=== PATIENT | female | born 1995 | race Caucasian/White ===

== ENCOUNTER 2017-08-07 09:01 | Day surgery (SDC) | payer MEDICAID, OTHER ==
[~2017-08-07 09:01] MED LIST: Lactated Ringers 1,000 ML IV SCH; Lidocaine 1%/Sod Bicarbonate in NS 8.4% 1 ML Syringe IV PRN; Sodium Chloride 0.9% 10 ML Syringe FLUSH PRN
[2017-08-07] MEDS ORDERED: Dexamethasone 4 MG/ML 5 ML MDV ONE (09:15)
[2017-08-07] MEDS ORDERED: Ondansetron 4 MG/2 ML SDV ONE (09:15)
[2017-08-07] MEDS ORDERED: Propofol 200 MG/20 ML SDV ONE (09:15)
[2017-08-07] MEDS ORDERED: Midazolam 1 MG/ML 2 ML SDV ONE (09:15)
[2017-08-07] MEDS ORDERED: fentaNYL 250 MCG/5 ML SDV ONE (09:16)
--- NOTE | 2017-08-07 09:53 | PCM.PREANE ---
Preanesthetic Assessment - Anesthesia/Transfusion/Family Hx Anesthesia History: Prior Anesthesia Without Reaction Family History of Anesthesia Reaction: No Transfusion History: No Prior Transfusion(s) - Review of Systems General: No Symptoms, Other (morbid obesity) Pulmonary: Shortness of Breath, Other (asthma, uses inhaler 5x/month, sleep apnea, does not wear CPAP) Cardiovascular: No Symptoms Gastrointestinal: No Symptoms Neurological: Other (seizures as a child, last one at 5 years old, no meds since age 8) Other: Reports: None - Physical Assessment NPO Status Date: 08/06/17 NPO Status Time: 23:00 Pulse: 98 O2 Sat by Pulse Oximetry: 98 Respiratory Rate: 20 Blood Pressure: 143/90 Vital Signs: Last Vital Signs Temp 36.7 C 08/07/17 09:05 Pulse 98 08/07/17 09:05 Resp 20 08/07/17 09:05 BP 143/90 H 08/07/17 09:05 Pulse Ox 98 08/07/17 09:05 Height: 1.7 m Weight: 157.397 kg ASA Class: 2 Mental Status: Alert & Oriented x3 Airway Class: Mallampati = 2 Dentition: Reports: Normal Dentition Thyro-Mental Finger Breadths: 3 Mouth Opening Finger Breadths: 3 ROM/Head Extension: Full Lungs: Clear to Auscultation, Normal Respiratory Effort Cardiovascular: Regular Rate, Regular Rhythm, No Murmurs - Lab Values: Laboratory Last Values WBC 5.74 K/mm3 (3.98-10.04) 08/07/17 09:26 RBC 3.75 M/mm3 (3.98-5.22) L 08/07/17 09:26 Hgb 10.2 gm/L (11.2-15.7) L 08/07/17 09:26 Hct 31.3 % (34.1-44.9) L 08/07/17 09:26 MCV 83.5 fl (79.4-94.8) 08/07/17 09:26 MCH 27.2 pg (25.6-32.2) 08/07/17 09:26 MCHC 32.6 g/dl (32.2-35.5) 08/07/17 09:26 RDW Std Deviation 41.9 fL (36.4-46.3) 08/07/17 09:26 Plt Count 259 K/mm3 (182-369) 08/07/17 09:26 MPV 8.9 fl (9.4-12.3) L 08/07/17 09:26 Neut % (Auto) 60.2 % (34.0-71.1) 08/07/17 09:26 Lymph % (Auto) 29.6 % (19.3-51.7) 08/07/17 09:26 Prentiss % (Auto) 7.8 % (4.7-12.5) 08/07/17 09:26 Eos % (Auto) 1.7 (0.7-5.8) 08/07/17 09:26 Baso % (Auto) 0.2 % (0.1-1.2) 08/07/17 09:26 Neut # (Auto) 3.45 K/mm3 (1.56-6.13) 08/07/17 09:26 Lymph # (Auto) 1.70 K/mm3 (1.18-3.74) 08/07/17 09:26 Prentiss # (Auto) 0.45 K/mm3 (0.24-0.36) H 08/07/17 09:26 Eos # (Auto) 0.10 K/mm3 (0.04-0.36) 08/07/17 09:26 Baso # (Auto) 0.01 K/mm3 (0.01-0.08) 08/07/17 09:26 Urine HCG, Qual Negative (NEGATIVE) 08/07/17 09:05 - Allergies Allergies/Adverse Reactions: Allergies Allergy/AdvReac Type Severity Reaction Status Date / Time No Known Allergies Allergy Verified 08/06/17 13:31 - Blood Blood Available: No Product(s) Available: None - Anesthesia Plan Pre-Op Medication Ordered: None - Acknowledgements Anesthesia Type Planned: General Anesthesia Pt an Appropriate Candidate for the Planned Anesthesia: Yes Alternatives and Risks of Anesthesia Discussed w Pt/Guardian: Yes Pt/Guardian Understands and Agrees with Anesthesia Plan: Yes PreAnesthesia Questionnaire HEENT History: Reports: Other (See Below) Other HEENT History: otitis externa Cardiovascular History: Reports: None Respiratory History: Reports: Asthma, Sleep Apnea Gastrointestinal History: Reports: None Genitourinary History: Reports: None HRIS ANALYST History: Reports: Other (See Below) Other OB/BYN History: dysmenrrhea, dyspareunia, irregular menses Musculoskeletal History: Reports: None Neurological History: Reports: Concussion, Headaches, Chronic, Seizure, Other ( See Below) Other Neuro History: head injury Psychiatric History: Reports: Other (See Below) Other Psychiatric History: malaise, fatigue Endocrine/Metabolic History: Reports: Obesity/BMI 30+ Hematologic History: Reports: None Immunologic History: Reports: None Oncologic (Cancer) History: Reports: None Dermatologic History: Reports: None - Past Surgical History Head Surgeries/Procedures: Reports: None HEENT Surgical History: Reports: None Cardiovascular Surgical History: Reports: None Respiratory Surgical History: Reports: None GI Surgical History: Reports: None Female Surgical History: Reports: None Male Surgical History: Reports: None Endocrine Surgical History: Reports: None Neurological Surgical History: Reports: None Musculoskeletal Surgical History: Reports: None Oncologic Surgical History: Reports: None Dermatological Surgical History: Reports: None - SUBSTANCE USE Smoking Status *Q: Former Smoker Recreational Drug Use History: No - HOME MEDS Home Medications: Home Meds Albuterol [Ventolin HFA] 1 - 2 puff INH Q4H PRN 08/06/17 [History] - CURRENT (IN HOUSE) MEDS Current Meds: Current Medications Lactated Ringer's (Ringers, Lactated) 1,000 mls @ 125 mls/hr IV ASDIRECTED DORENE Stop: 08/07/17 18:00 Last Admin: 08/07/17 09:26 Dose: 125 mls/hr Lidocaine/Sodium Bicarbonate (Buffered Lidocaine 1% In Ns 8.4%) 0.25 ml IV ONETIME PRN PRN Reason: Prior to IV Start Stop: 08/07/17 18:00 Sodium Chloride (Saline Flush) 10 ml FLUSH ASDIRECTED PRN PRN Reason: Keep Vein Open Stop: 08/07/17 18:00 Discontinued Medications Dexamethasone (Dexamethasone) Confirm Administered Dose 20 mg .ROUTE .STK-MED ONE Stop: 08/07/17 09:16 Fentanyl (Sublimaze) Confirm Administered Dose 250 mcg .ROUTE .STK-MED ONE Stop: 08/07/17 09:17 Midazolam HCl (Versed 1 Mg/Ml) Confirm Administered Dose 2 mg .ROUTE .STK-MED ONE Stop: 08/07/17 09:16 Ondansetron HCl (Zofran) Confirm Administered Dose 4 mg .ROUTE .STK-MED ONE Stop: 08/07/17 09:16 Propofol (Diprivan 20 Ml) Confirm Administered Dose 200 mg .ROUTE .STK-MED ONE Stop: 08/07/17 09:16
[2017-08-07] MEDS ORDERED: Rocuronium 50 MG/5 ML Vial ONE (10:23)
[2017-08-07] MEDS ORDERED: Neostigmine Methylsulfate 1 MG/ML 5 ML Syringe ONE (11:50)
[2017-08-07] MEDS ORDERED: Meperidine PF 50 MG/ML Syringe IVPUSH PRN (12:11)
[2017-08-07] MEDS ORDERED: fentaNYL 100 MCG/2 ML SDV IVPUSH PRN (12:11)
[2017-08-07] MEDS ORDERED: HYDROmorphone 0.5 MG/0.5 ML Syringe IVPUSH PRN (12:11)
--- NOTE | 2017-08-07 12:11 | PCM.POSTAN ---
POST ANESTHESIA ASSESSMENT - MENTAL STATUS Mental Status: Alert, Oriented - VITAL SIGNS Pulse Rate: 98 SaO2: 94 Resp Rate: 14 Blood Pressure: 125/52 Temperature: 36.4 C - RESPIRATORY Respiratory Status: Respiratory Rate WNL, Airway Patent, O2 Saturation Stable, Supplemental Oxygen - CARDIOVASCULAR CV Status: Pulse Rate WNL, Blood Pressure Stable - GASTROINTESTINAL GI Status: No Symptoms - PAIN Pain Score: 0 - POST OP HYDRATION Hydration Status: Adequate & Stable
[2017-08-07] MEDS ORDERED: fentaNYL 100 MCG/2 ML SDV ONE (12:17)
[2017-08-07] MEDS ORDERED: Lactated Ringers 1,000 ML ONE (12:19)
--- NOTE | 2017-08-07 12:20 | PCM.OPNOTE ---
- General Post-Op/Procedure Note Date of Surgery/Procedure: 08/07/17 Operative Procedure(s): Hysteroscopy, dilation and curettage Findings: Normal appearing cervix, bilaterally ostia visualized, thickened endometrium Pre Op Diagnosis: Abnormal uterine bleeding Post-Op Diagnosis: Same Anesthesia Technique: General ET Tube Primary Surgeon: Viraj Mata Secondary Surgeon: Cezar Brady Anesthesia Provider: Zoraida Hartmann Reason Silo Filler Was Necessary: Morbidly obese patient and patient safety Role of Silo Filler: Retraction for case with morbidly obese patient Fluid Replacement, Intraop: 1,300 Output, Urine Amount: 0 (Voided prior to procedure) EBL in mLs: 5 Complications: None Condition: Good Free Text/Narrative:: Hysteroscopy fluids: In: 1100 mL Out: 1000 mL Procedure in Detail: Patient was seen in the preoperative holding area and reviewed the risks, benefits and alternatives of the procedure and consents were reviewed prior to going back to the OR. She was taken back to the OR and given general anesthesia with and tracheal tube that was placed without difficulty. She was placed in dorsal lithotomy position using yellowfin stirrups. She was prepped and draped in a normal sterile fashion. A weighted speculum was placed in the vagina. Additional retractors were used in the vagina and the cervix was visualized. The anterior lip of the cervix was grasped with an Allis clamp. The cervix was serially dilated to a 19 [place] Lim dilator. A 5 mm hysteroscope was inserted into the uterine cavity and advanced to the uterine fundus. The ostia were noted to be present bilaterally. The uterine fundus was noted to be grossly normal in appearance with thickened endometrium globally. The hysteroscope was removed and a sharp curette was used to circumferentially curette the entirety of the uterine cavity where good cri was present in all directions. The curettings were sent for pathology. The procedure was complete at this time and the Allis clamp was removed from the cervix and good hemostasis was noted. All instruments were removed from the vagina. All needle and sponge counts were correct x 2. The patient was awoken and taken back to the recovery room in stable condition. The patient will be discharged home when she is ambulating, tolerating PO, pain is well controlled with oral medications and she is voiding normally. She will follow up in the clinic within the next 2-3 weeks. She was given strict precautions to return if she is having severe vaginal bleeding of more than 1 pad per hour for three hours, uncontrollable pain/nausea /vomiting or if she is having a fever greater than 100.4 F.
[2017-08-07 13:55] VITALS: BP 129/70
== END 2017-08-07 14:20 | disposition home or self-care (01) ==
LOC: JD.SDS 09:01
PROVIDERS: ATTEND Obstetrics & Gynecology
DX: N93.9 Abnormal uterine and vaginal bleeding, unspecified (principal); J45.909 Unspecified asthma, uncomplicated; N92.6 Irregular menstruation, unspecified; G47.30 Sleep apnea, unspecified; E66.01 Morbid (severe) obesity due to excess calories; H60.509 Unspecified acute noninfective otitis externa, unspecified ear; Z79.899 Other long term (current) drug therapy; Z87.891 Personal history of nicotine dependence; Z68.43 Body mass index [BMI] 50.0-59.9, adult
CPT/HCPCS: 36415; 58558; 81025; 85025; J1100; J1170; J2250; J2405; J2710; J3010; J7120; 00952; J2704

== ENCOUNTER 2023-06-18 20:38 | Emergency (ER) | payer MEDICAID ==
[2023-06-18] MEDS ORDERED: Amoxicillin/Clavulanate K 875-125 MG Tab PO ONE (21:38)
[2023-06-18 22:07] VITALS: BP 132/70; PULSE 88
== END 2023-06-18 22:05 | disposition home or self-care (01) ==
LOC: JD.ED 20:38
DX: H66.011 Acute suppurative otitis media with spontaneous rupture of ear drum, right ear (principal); J45.909 Unspecified asthma, uncomplicated; E66.9 Obesity, unspecified; Z68.43 Body mass index [BMI] 50.0-59.9, adult
CPT/HCPCS: 99282; A9270; 99283

== ENCOUNTER 2023-12-31 21:42 | Emergency (ER) | payer SELFPAY ==
[2023-12-31] MEDS: Ibuprofen 800 MG Tab PO ONE (22:42)
[2023-12-31 23:13] VITALS: BP 113/60; PULSE 84
== END 2023-12-31 23:05 | disposition home or self-care (01) ==
LOC: JD.ED 21:42
DX: S93.401A Sprain of unspecified ligament of right ankle, initial encounter (principal); J45.909 Unspecified asthma, uncomplicated; E66.9 Obesity, unspecified; Z68.43 Body mass index [BMI] 50.0-59.9, adult; Z79.51 Long term (current) use of inhaled steroids; Z79.899 Other long term (current) drug therapy; X50.1XXA Overexertion from prolonged static or awkward postures, initial encounter; Y93.89 Activity, other specified
CPT/HCPCS: 73610; 73630; 99283; A9270